=== PATIENT | female | born 1950 | race Caucasian/White ===

== ENCOUNTER 2021-11-30 22:49 | Emergency (ER) | payer MEDICARE ==
[~2021-11-30 22:49] MED LIST: Iopamidol-370 76% 500 ML 1 ML ONE
[2021-11-30 23:18] LABS: #Basophils 0.1 thou/uL (0.0-0.2); #Eosinphils 0.4 thou/uL (0.0-0.7); #Lymphocytes 5.2 thou/uL (1.20-3.40); #Monocytes 1.4 thou/uL (0.11-0.59); #Neutrophils 8.3 thou/uL (1.40-6.50); %Basophils 0.5 % (0.0-1.0); %Eosinophils 2.4 % (0.0-10.0); %Lymphocytes 33.6 % (21.0-51.0); %Monocytes 9.4 % (0.0-10.0); %Neutrophils 54.1 % (42.0-75.0); Hemoglobin 11.8 g/dL (12.0-16.0); Mean Corpuscular Hemoglobin 31.4 pg (27.0-31.0); Mean Corpuscular Volume 92.5 fL (78.0-98.0); Mean Platelet Volume 7.7 fL (7.4-10.4); Platelet Count 262 thou/uL (130-400); RBC Distribution Width 13.1 % (11.5-14.5); Red Blood Cell (RBC) Count 3.76 mill/uL (4.20-5.40); White Blood Cell (WBC) Count 15.3 thou/uL (4.8-10.8)
[2021-11-30 23:23] LABS: Albumin 3.9 g/dL (3.4-4.8); Anion Gap 16 mmol/L (10-20); BUN (Urea Nitrogen) 14 mg/dL (9.8-20.1); Bilirubin, Total 0.4 mg/dL (0.2-1.2); Calc. Creatinine Clearance 0 mL/min (70-130); Calcium 8.7 mg/dL (7.8-10.44); Carbon Dioxide 25 mmol/L (23-31); Chloride 101 mmol/L (98-107); Estimated GFR 60; Glucose 113 mg/dL (80-115); Potassium 3.5 mmol/L (3.5-5.1); Protein, Total 6.4 g/dL (5.8-8.1); Sodium 138 mmol/L (136-145)
[2021-11-30 23:24] LABS: ALT (SGPT) 11 U/L (8-55); AST (SGOT) 15 U/L (5-34); Alkaline Phosphatase 107 U/L (40-110); CK (CPK) 47 U/L (29-168); Globulin 2.5 g/dL (2.4-3.5)
[2021-11-30 23:26] LABS: INR-International Normal Ratio 0.9; Prothrombin Time 12.2 sec (12.0-14.7)
[2021-11-30 23:27] LABS: PTT 27.1 sec (22.9-36.1)
[2021-11-30] MEDS ORDERED: HYDROcodone/Acetaminophen 5/325 mg Tablet ONE (23:44)
[2021-12-01 01:34] LABS: SARS-CoV-2 NAA Rapid Test Not Detected (NotDetected)
== END 2021-12-01 03:20 | disposition short-term general hospital (02) ==
LOC: ERS 22:49
DX: R29.810 Facial weakness (principal); R47.81 Slurred speech; R29.898 Other symptoms and signs involving the musculoskeletal system; Z20.822 Contact with and (suspected) exposure to COVID-19; I11.0 Hypertensive heart disease with heart failure; I50.9 Heart failure, unspecified; I25.10 Atherosclerotic heart disease of native coronary artery without angina pectoris; I48.91 Unspecified atrial fibrillation; J44.9 Chronic obstructive pulmonary disease, unspecified; K21.9 Gastro-esophageal reflux disease without esophagitis; F17.210 Nicotine dependence, cigarettes, uncomplicated; Z79.82 Long term (current) use of aspirin; Z79.899 Other long term (current) drug therapy
CPT/HCPCS: 70450 ×2; 70496; 70498; 80053; 82550; 84484; 85025; 85610; 85730; 93005; U0002; 96374; Q9967

== ENCOUNTER 2022-06-23 03:05 | Inpatient (IN) | payer MEDICARE ==
[2022-06-23] MEDS ORDERED: Propofol 1,000 MG/100 ML VIAL IV ONE (03:13)
[2022-06-23 03:36] LABS: Actual Bicarbonate (HCO3a) 22.8 mEq/L (22-28); Analyzer IN Cardio ER; Base Excess (BEa) -2.7 mEq/L (-2.0 to +3.0); Calcium, Ionized (arterial) 1.07 mmol/L (1.12-1.30); Carboxyhemoglobin (COHb) 0.7 gm% (0.0-3.0); Hemoglobin (Hb) 10.4 g/dL (12.0-16.0); O2 Tension (PaO2), arterial 61.6 mmHg (> 80.0); Potassium - ABG Lab 3.64 mmol/L (3.70-5.30); pH, Arterial 7.35 (7.35-7.45)
[2022-06-23 03:39] LABS: Puncture Site LBA
[2022-06-23] MEDS ORDERED: NOREPINEPHRINE 8 MG/250 ML-D5W 250 ML ONE (03:57)
[2022-06-23] MEDS ORDERED: Cefepime 2 GM VIAL ONE (03:57)
[2022-06-23 04:13] LABS: #Lymphocytes 2.2 thou/uL (1.20-3.40); #Monocytes 0.7 thou/uL (0.11-0.59); #Neutrophils 15.2 thou/uL (1.40-6.50); %Basophils 0.2 % (0.0-1.0); %Eosinophils 0.1 % (0.0-10.0); %Monocytes 3.6 % (0.0-10.0); %Neutrophils 84.1 % (42.0-75.0); Hemoglobin 9.9 g/dL (12.0-16.0); Mean Corpuscular HGB CONC 33.1 g/dL (32.0-36.0); Mean Corpuscular Hemoglobin 29.9 pg (27.0-31.0); Mean Corpuscular Volume 90.3 fl (78.0-98.0); Mean Platelet Volume 8.2 fL (7.4-10.4); Platelet Count 334 10x3/uL (130-400); RBC Distribution Width 14.6 % (11.5-14.5); White Blood Cell (WBC) Count 18.1 10x3/uL (4.8-10.8)
[2022-06-23 04:17] LABS: INR-International Normal Ratio 1.7; PTT 33.9 sec (22.9-36.1); Prothrombin Time 20.3 sec (12.0-14.7)
[2022-06-23 04:26] LABS: ALT (SGPT) 27 U/L (8-55); AST (SGOT) 28 U/L (5-34); Albumin 3.7 g/dL (3.4-4.8); Alkaline Phosphatase 114 U/L (40-110); Anion Gap 17 mmol/L (10-20); BUN (Urea Nitrogen) 20 mg/dL (9.8-20.1); Calc. Creatinine Clearance 0 mL/min (70-130); Calcium 8.1 mg/dL (7.8-10.44); Carbon Dioxide 20 mmol/L (23-31); Chloride 103 mmol/L (98-107); Estimated GFR 67; Glucose 322 mg/dL (80-115); Lipase 6 U/L (8-78); Potassium 4.1 mmol/L (3.5-5.1); Protein, Total 5.7 g/dL (5.8-8.1); Sodium 136 mmol/L (136-145)
[2022-06-23] MEDS ORDERED: Vancomycin 1 GM/200 ML (FROZEN) BAG ONE (04:40)
[2022-06-23] MEDS ORDERED: Bisacodyl 10 MG SUPP PR PRN (04:40)
[2022-06-23] MEDS ORDERED: Insulin Regular 300 UNITS/3 ML VIAL SC PRN (04:40)
[2022-06-23] MEDS ORDERED: Ondansetron PF 4 MG/2 ML Vial IVP PRN (04:40)
[2022-06-23] MEDS ORDERED: Acetaminophen 325 MG Suppository PR PRN (04:40)
[2022-06-23] MEDS ORDERED: NOREPINEPHRINE 8 MG/250 ML-D5W 250 ML IVPB PRN (04:40)
[2022-06-23] MEDS ORDERED: Electrolyte Replacement Protocol 1 EACH IVPB PRN (04:40)
[2022-06-23] MEDS ORDERED: Ventilator Sedation Protocol 1 EACH FS SCH (04:45)
[2022-06-23] MEDS ORDERED: Propofol BOLUS 1,000 MG/100 ML VIAL IV PRN (05:00)
[2022-06-23] MEDS ORDERED: Fentanyl BOLUS 250 ML IVPB PRN (05:00)
[2022-06-23] MEDS ORDERED: Morphine 2 MG/ML VIAL SLOW IVP PRN (05:00)
[2022-06-23] MEDS ORDERED: Lorazepam 2 MG/ML VIAL SLOW IVP PRN (05:00)
[2022-06-23] MEDS ORDERED: methylPREDNISolone Sod Succ 40 MG VIAL IVP SCH (05:00)
[2022-06-23] MEDS ORDERED: DISCONTINUE PREVIOUS NARCOTIC PAIN MEDICATIONS AND BENZODIAZEPINES FS SCH (05:00)
[2022-06-23] MEDS ORDERED: Dextrose 50% Abboject 50 ML SYRINGE SLOW IVP PRN (05:08)
[2022-06-23] MEDS ORDERED: Dextrose 5% in Water 1,000 ML IV PRN (05:08)
[2022-06-23] MEDS ORDERED: HumaLOG 300 UNITS/3 ML VIAL SC PRN (05:08)
[2022-06-23] MEDS ORDERED: Ipratropium/Albuterol 3 ML NEB EZPAP PRN (05:11)
[2022-06-23] MEDS ORDERED: Guaifenesin DM 100-10/5 ML UDCUP PER TUBE PRN (05:12)
[2022-06-23] MEDS ORDERED: Ventilator Sedation Protocol 1 EACH FS ONE (05:16)
[2022-06-23 05:52] LABS: Bacteria/HPF None Seen HPF (None Seen); Bilirubin Negative (Negative); Blood, Urine Negative (Negative); Clarity Clear (Clear); Glucose, Urine (Dipstick) Normal (Negative); Ketone, Urine Negative (Negative); Leukocyte Negative Leu/uL (Negative); Nitrite Negative (Negative); Protein, Urine (Dipstick) 30 mg/dL (Neg-Trace); RBC/HPF 0-3 HPF (0-3); Specific Gravity, Urine 1.024 (1.002-1.036); Squamous Epithelial 0-3 HPF (0-3); Urobilinogen Normal mg/dL (Less than 2); WBC/HPF 0-3 HPF (0-3); pH, Urine 5.5 (5.0-9.0)
[2022-06-23 06:24] LABS: SARS-CoV-2 NAA Rapid Test Not Detected (NotDetected)
[2022-06-23] MEDS ORDERED: Fentanyl CADD 100 ML ONE (06:28)
[2022-06-23] MEDS ORDERED: Furosemide 40 MG/4 ML VIAL SLOW IVP SCH (06:30)
[2022-06-23] MEDS ORDERED: Sodium Chloride 0.9% 1,000 ML IV SCH ×2 (06:30→06:38)
[2022-06-23] MEDS: HumaLOG 300 UNITS/3 ML VIAL SC PRN ×3 (06:31→18:06)
[2022-06-23] MEDS: Fentanyl CADD 100 ML IV SCH (06:32)
[2022-06-23] MEDS ORDERED: Ipratropium/Albuterol 3 ML NEB NEB SCH (07:00)
[2022-06-23] MEDS: Ipratropium/Albuterol 3 ML NEB NEB SCH ×5 (07:22→23:48)
[2022-06-23 07:40] LABS: Hemoglobin A1c 6.3 % (4.0-6.0)
[2022-06-23 07:45] LABS: Magnesium 2.7 mg/dL (1.6-2.6)
[2022-06-23 07:59] LABS: Troponin I 0.017 ng/mL (< 0.028)
[2022-06-23 08:04] LABS: Lactic Acid 2.5 mmol/L (0.5-2.2)
[2022-06-23] MEDS: methylPREDNISolone Sod Succ 40 MG VIAL IVP SCH ×2 (08:58→20:20)
[2022-06-23] MEDS: Famotidine/PF 20 mg/2ml Vial SLOW IVP SCH ×2 (08:58→20:20)
[2022-06-23 10:10] LABS: Legionella Urinary Ag Negative (Negative); Strep pneumo Urine Ag NEGATIVE (NEGATIVE)
[2022-06-23] MEDS ORDERED: FLU VACC QS2022-23(65YR UP)/PF 240 MCG/0.7 ML SYRINGE IM ONE (10:15)
[2022-06-23] MEDS: Propofol 1,000 MG/100 ML VIAL IV PRN ×2 (10:27→18:05)
[2022-06-23] MEDS ORDERED: Cefepime 2 GM in Sodium Chloride 0.9% 100 ML IVPB SCH (16:00)
[2022-06-23] MEDS: Acetaminophen 650 MG/20.3 ML UDCUP PO PRN (16:01)
[2022-06-24] MEDS: Propofol 1,000 MG/100 ML VIAL IV PRN ×4 (02:22→20:31)
[2022-06-24] MEDS: Fentanyl CADD 100 ML IV SCH (02:39)
[2022-06-24] MEDS: Ipratropium/Albuterol 3 ML NEB NEB SCH ×6 (02:44→21:35)
[2022-06-24] MEDS: Cefepime 1 GM in Sodium Chloride 0.9% 100 ML IVPB SCH ×2 (03:22→16:19)
[2022-06-24 05:05] LABS: #Lymphocytes 0.9 thou/uL (1.20-3.40); #Monocytes 0.4 thou/uL (0.11-0.59); %Eosinophils 0.1 % (0.0-10.0); %Lymphocytes 6.4 % (21.0-51.0); %Neutrophils 90.5 % (42.0-75.0); Hemoglobin 8.4 g/dL (12.0-16.0); Mean Corpuscular Hemoglobin 29.7 pg (27.0-31.0); Mean Platelet Volume 8.6 fL (7.4-10.4); Platelet Count 315 10x3/uL (130-400); RBC Distribution Width 14.4 % (11.5-14.5); Red Blood Cell (RBC) Count 2.84 mill/uL (4.20-5.40); White Blood Cell (WBC) Count 13.3 10x3/uL (4.8-10.8)
[2022-06-24 05:28] LABS: Anion Gap 14 mmol/L (10-20); BUN (Urea Nitrogen) 18 mg/dL (9.8-20.1); Calc. Creatinine Clearance 81 mL/min (70-130); Carbon Dioxide 22 mmol/L (23-31); Chloride 106 mmol/L (98-107); Potassium 3.6 mmol/L (3.5-5.1); Sodium 138 mmol/L (136-145)
[2022-06-24 05:29] LABS: Calcium 8.4 mg/dL (7.8-10.44); Estimated GFR 81; Glucose 233 mg/dL (80-115); Magnesium 2.3 mg/dL (1.6-2.6)
[2022-06-24 06:27] LABS: Actual Bicarbonate (HCO3a) 22.4 mEq/L (22-28); CO2 Tension 36.9 mmHg (35.0-45.0); Calcium, Ionized (arterial) 1.14 mmol/L (1.12-1.30); Carboxyhemoglobin (COHb) 0.1 gm% (0.0-3.0); Hemoglobin (Hb) 9.9 g/dL (12.0-16.0); Potassium - ABG Lab 3.87 mmol/L (3.70-5.30)
[2022-06-24 06:29] LABS: ALV-art Gradient 182.975 mmHg (0-20)
[2022-06-24] MEDS ORDERED: Dexmedetomidine In 0.9 % NaCl 100 ML IVPB SCH (08:15)
[2022-06-24] MEDS ORDERED: Propofol 1,000 MG/100 ML VIAL IV ONE (08:16)
[2022-06-24] MEDS: Famotidine/PF 20 mg/2ml Vial SLOW IVP SCH ×2 (08:50→20:32)
[2022-06-24] MEDS: Polyethylene Glycol 3350 17 GM Packet PO SCH (08:50)
[2022-06-24] MEDS: methylPREDNISolone Sod Succ 40 MG VIAL IVP SCH ×2 (08:50→20:31)
[2022-06-24] MEDS ORDERED: Vancomycin 1.5 GRAM/300 ML BAG 1.5 GM in Premix Bag 1 BAG IVPB SCH (09:00)
[2022-06-24] MEDS ORDERED: Propofol BOLUS 1,000 MG/100 ML VIAL IV PRN (09:00)
[2022-06-24] MEDS: HumaLOG 300 UNITS/3 ML VIAL SC PRN ×3 (11:57→22:07)
[2022-06-24] MEDS: Vancomycin HCl 750 MG in Sodium Chloride 0.9% 250 ML 250 ML IVPB SCH (22:00)
[2022-06-25] MEDS: Ipratropium/Albuterol 3 ML NEB NEB SCH ×6 (01:54→21:48)
[2022-06-25] MEDS: Cefepime 1 GM in Sodium Chloride 0.9% 100 ML IVPB SCH ×2 (04:05→15:46)
[2022-06-25] MEDS: Propofol 1,000 MG/100 ML VIAL IV PRN ×2 (04:05→15:05)
[2022-06-25] MEDS: HumaLOG 300 UNITS/3 ML VIAL SC PRN ×3 (04:22→17:46)
[2022-06-25 04:53] LABS: #Lymphocytes 0.8 thou/uL (1.20-3.40); #Monocytes 0.4 thou/uL (0.11-0.59); #Neutrophils 10.9 thou/uL (1.40-6.50); %Basophils 0.2 % (0.0-1.0); %Eosinophils 0.1 % (0.0-10.0); %Lymphocytes 6.6 % (21.0-51.0); %Monocytes 3.2 % (0.0-10.0); %Neutrophils 89.9 % (42.0-75.0); Hemoglobin 8.2 g/dL (12.0-16.0); Mean Corpuscular HGB CONC 32.5 g/dL (32.0-36.0); Mean Corpuscular Hemoglobin 29.1 pg (27.0-31.0); Mean Corpuscular Volume 89.5 fl (78.0-98.0); Platelet Count 329 10x3/uL (130-400); RBC Distribution Width 14.3 % (11.5-14.5); White Blood Cell (WBC) Count 12.1 10x3/uL (4.8-10.8)
[2022-06-25 05:12] LABS: Anion Gap 11 mmol/L (10-20); BUN (Urea Nitrogen) 21 mg/dL (9.8-20.1); Calc. Creatinine Clearance 81 mL/min (70-130); Calcium 8.5 mg/dL (7.8-10.44); Carbon Dioxide 24 mmol/L (23-31); Chloride 108 mmol/L (98-107); Estimated GFR 83; Glucose 218 mg/dL (80-115); Potassium 3.6 mmol/L (3.5-5.1); Sodium 139 mmol/L (136-145)
[2022-06-25 07:09] LABS: Actual Bicarbonate (HCO3a) 23.5 mEq/L (22-28); Base Excess (BEa) -0.8 mEq/L (-2.0 to +3.0); Calcium, Ionized (arterial) 1.17 mmol/L (1.12-1.30); Carboxyhemoglobin (COHb) 0.3 gm% (0.0-3.0); Hemoglobin (Hb) 9.8 g/dL (12.0-16.0); O2 Tension (PaO2), arterial 118.7 mmHg (> 80.0); Potassium - ABG Lab 3.76 mmol/L (3.70-5.30); pH, Arterial 7.42 (7.35-7.45)
[2022-06-25] MEDS ORDERED: NPH, Human Insulin Isophane 300 UNIT/3 ML VIAL SC SCH (09:00)
[2022-06-25] MEDS: Rivaroxaban 10 MG TAB PER TUBE SCH (09:54)
[2022-06-25] MEDS: Famotidine 20 MG TAB PO SCH ×2 (09:54→20:06)
[2022-06-25] MEDS: Polyethylene Glycol 3350 17 GM Packet PO SCH (09:55)
[2022-06-25] MEDS: Vancomycin HCl 750 MG in Sodium Chloride 0.9% 250 ML 250 ML IVPB SCH ×2 (09:55→20:06)
[2022-06-25] MEDS: methylPREDNISolone Sod Succ 40 MG VIAL IVP SCH ×2 (09:57→20:06)
[2022-06-25] MEDS ORDERED: Insulin NPH Human Isophane 100 UNIT/ML (10 ML VIAL) SC SCH (10:45)
[2022-06-25] MEDS ORDERED: Lactated Ringer's 1,000 ML IV SCH (12:45)
[2022-06-25] MEDS: Metoclopramide HCl 10 MG/2 ML VIAL IVP SCH ×2 (13:09→20:06)
[2022-06-25 15:35] LABS: O2 Tension (PaO2), arterial 56.1 mmHg (> 80.0)
[2022-06-25] MEDS: Insulin NPH Human Isophane 100 UNIT/ML (10 ML VIAL) SC SCH (20:07)
[2022-06-25 21:09] LABS: Vancomycin, Trough 20.6 ug/mL
[2022-06-26] MEDS: Ipratropium/Albuterol 3 ML NEB NEB SCH ×6 (07:16→21:43)
[2022-06-26 07:17] LABS: Base Excess (BEa) -1.1 mEq/L (-2.0 to +3.0); CO2 Tension 35.8 mmHg (35.0-45.0); Calcium, Ionized (arterial) 1.15 mmol/L (1.12-1.30); Hemoglobin (Hb) 8.9 g/dL (12.0-16.0); O2 Tension (PaO2), arterial 111.5 mmHg (> 80.0); Puncture Site RBA; pH, Arterial 7.43 (7.35-7.45)
[2022-06-26] MEDS: Cefepime 1 GM in Sodium Chloride 0.9% 100 ML IVPB SCH ×2 (07:35→16:35)
[2022-06-26 07:49] LABS: Hemoglobin 9.1 g/dL (12.0-16.0); Mean Corpuscular HGB CONC 31.9 g/dL (32.0-36.0); Mean Corpuscular Hemoglobin 28.5 pg (27.0-31.0); Mean Corpuscular Volume 89.2 fl (78.0-98.0); Mean Platelet Volume 7.6 fL (7.4-10.4); Platelet Count 362 10x3/uL (130-400); RBC Distribution Width 14.5 % (11.5-14.5); Red Blood Cell (RBC) Count 3.18 mill/uL (4.20-5.40); White Blood Cell (WBC) Count 14.5 10x3/uL (4.8-10.8)
[2022-06-26 07:53] LABS: Anion Gap 15 mmol/L (10-20); BUN (Urea Nitrogen) 29 mg/dL (9.8-20.1); Calc. Creatinine Clearance 81 mL/min (70-130); Calcium 8.4 mg/dL (7.8-10.44); Carbon Dioxide 20 mmol/L (23-31); Chloride 110 mmol/L (98-107); Estimated GFR 81; Glucose 138 mg/dL (80-115); Potassium 4.5 mmol/L (3.5-5.1); Sodium 140 mmol/L (136-145)
[2022-06-26 08:47] LABS: #Lymphocytes 1.6 thou/uL (1.20-3.40); #Monocytes 1.1 thou/uL (0.11-0.59); #Neutrophils 11.8 thou/uL (1.40-6.50); %Basophils 0.1 % (0.0-1.0); %Eosinophils 0.2 % (0.0-10.0); %Lymphocytes 11.2 % (21.0-51.0); %Monocytes 7.6 % (0.0-10.0); %Neutrophils 80.9 % (42.0-75.0); Band 6 % (5-11); Lymphocytes 14 % (21-51); MDiff Complete? YES; Monocytes 3 % (0-10); Neutrophil 77 % (42-75); Platelet Morphology Comment Appears Adequate; Polychromasia SLIGHT = 2-3 cells (100X) (0-2/hpf)
[2022-06-26] MEDS ORDERED: Vancomycin 1.5 GRAM/300 ML BAG 1.5 GM in Premix Bag 1 BAG IVPB SCH (09:00)
[2022-06-26] MEDS: Metoclopramide HCl 10 MG/2 ML VIAL IVP SCH ×2 (10:36→20:56)
[2022-06-26] MEDS: methylPREDNISolone Sod Succ 40 MG VIAL IVP SCH ×2 (10:36→20:57)
[2022-06-26] MEDS: Famotidine 20 MG TAB PO SCH ×2 (10:37→20:56)
[2022-06-26] MEDS: Rivaroxaban 10 MG TAB PER TUBE SCH (10:38)
[2022-06-26] MEDS: Insulin NPH Human Isophane 100 UNIT/ML (10 ML VIAL) SC SCH ×2 (10:39→20:58)
[2022-06-26] MEDS: Polyethylene Glycol 3350 17 GM Packet PO SCH (10:42)
[2022-06-26] MEDS: Propofol 1,000 MG/100 ML VIAL IV PRN (12:21)
[2022-06-26] MEDS: HumaLOG 300 UNITS/3 ML VIAL SC PRN (16:35)
[2022-06-26] MEDS: Acetaminophen 650 MG/20.3 ML UDCUP PO PRN (20:56)
[2022-06-26 22:36] LABS: Mycoplasma pneumoniae IgG AB Less than 100 U/mL (0-99); Mycoplasma pneumoniae IgM AB Less than 770 U/mL (0-769)
[2022-06-27] MEDS: Ipratropium/Albuterol 3 ML NEB NEB SCH ×6 (02:16→21:26)
[2022-06-27] MEDS: Propofol 1,000 MG/100 ML VIAL IV PRN (02:25)
[2022-06-27] MEDS: Cefepime 1 GM in Sodium Chloride 0.9% 100 ML IVPB SCH ×2 (03:08→16:57)
[2022-06-27 04:25] LABS: Band 3 % (5-11); Hemoglobin 9.9 g/dL (12.0-16.0); Hypochromia SLIGHT = 6-15 cells (100X) (0-5/hpf); Lymphocytes 16 % (21-51); MDiff Complete? YES; Mean Corpuscular HGB CONC 31.6 g/dL (32.0-36.0); Mean Corpuscular Hemoglobin 29.7 pg (27.0-31.0); Mean Corpuscular Volume 93.8 fl (78.0-98.0); Mean Platelet Volume 7.7 fL (7.4-10.4); Monocytes 1 % (0-10); Neutrophil 80 % (42-75); Platelet Count 299 10x3/uL (130-400); Platelet Morphology Comment Appears Adequate; RBC Distribution Width 14.7 % (11.5-14.5); Red Blood Cell (RBC) Count 3.33 mill/uL (4.20-5.40); White Blood Cell (WBC) Count 12.6 10x3/uL (4.8-10.8)
[2022-06-27 07:33] LABS: Actual Bicarbonate (HCO3a) 23.1 mEq/L (22-28); Base Excess (BEa) -0.6 mEq/L (-2.0 to +3.0); CO2 Tension 34.1 mmHg (35.0-45.0); Calcium, Ionized (arterial) 1.16 mmol/L (1.12-1.30); Carboxyhemoglobin (COHb) 0.3 gm% (0.0-3.0); Hemoglobin (Hb) 8.4 g/dL (12.0-16.0); pH, Arterial 7.45 (7.35-7.45)
[2022-06-27 07:38] LABS: ALV-art Gradient 124.575 mmHg (0-20); Puncture Site RBA
[2022-06-27] MEDS ORDERED: Furosemide 40 MG/4 ML VIAL SLOW IVP SCH (07:45)
[2022-06-27] MEDS: Metoclopramide HCl 10 MG/2 ML VIAL IVP SCH ×2 (10:12→20:48)
[2022-06-27] MEDS: Famotidine 20 MG TAB PO SCH ×2 (10:12→20:48)
[2022-06-27] MEDS: methylPREDNISolone Sod Succ 40 MG VIAL IVP SCH ×2 (10:12→20:48)
[2022-06-27] MEDS: Polyethylene Glycol 3350 17 GM Packet PO SCH (10:12)
[2022-06-27] MEDS: Insulin NPH Human Isophane 100 UNIT/ML (10 ML VIAL) SC SCH ×2 (10:13→20:49)
[2022-06-27] MEDS: Rivaroxaban 10 MG TAB PER TUBE SCH (10:34)
[2022-06-27] MEDS ORDERED: DC Sedation Protocol FS ONE (10:38)
[2022-06-27] MEDS ORDERED: Lorazepam 2 MG/ML VIAL SLOW IVP PRN (12:19)
[2022-06-27] MEDS ORDERED: Lorazepam 2 MG/ML VIAL ONE (12:22)
[2022-06-27] MEDS ORDERED: Diltiazem 125 MG in Sodium Chloride 0.9% 100 ML IVPB SCH (12:30)
[2022-06-27] MEDS ORDERED: PROPOFOL 200 MG/20 ML VIAL ONE (12:30)
[2022-06-27] MEDS ORDERED: Propofol 1,000 MG/100 ML VIAL IV ONE (12:53)
[2022-06-27] MEDS ORDERED: Ventilator Sedation Protocol 1 EACH FS PRN (13:00)
[2022-06-27] MEDS ORDERED: DISCONTINUE PREVIOUS NARCOTIC PAIN MEDICATIONS AND BENZODIAZEPINES FS SCH (13:45)
[2022-06-27] MEDS ORDERED: Fentanyl CADD 100 ML IV SCH (13:45)
[2022-06-27] MEDS ORDERED: Fentanyl BOLUS 250 ML IVPB PRN (13:45)
[2022-06-27] MEDS ORDERED: Propofol BOLUS 1,000 MG/100 ML VIAL IV PRN (13:45)
[2022-06-27] MEDS ORDERED: Morphine 4 MG/ML VIAL SLOW IVP PRN (13:45)
[2022-06-27] MEDS ORDERED: Propofol 1,000 MG/100 ML VIAL IV PRN (13:45)
[2022-06-27 16:43] VITALS: BMI 31.4
[2022-06-27 22:01] LABS: Anion Gap 12 mmol/L (10-20); BUN (Urea Nitrogen) 24 mg/dL (9.8-20.1); Calc. Creatinine Clearance 84 mL/min (70-130); Calcium 8.4 mg/dL (7.8-10.44); Carbon Dioxide 23 mmol/L (23-31); Chloride 109 mmol/L (98-107); Estimated GFR 82; Glucose 150 mg/dL (80-115); Potassium 4.7 mmol/L (3.5-5.1); Sodium 139 mmol/L (136-145)
[2022-06-28] MEDS: Ipratropium/Albuterol 3 ML NEB NEB SCH ×6 (01:39→22:24)
[2022-06-28 04:01] LABS: #Eosinphils 0.1 thou/uL (0.0-0.7); #Monocytes 0.5 thou/uL (0.11-0.59); #Neutrophils 11.3 thou/uL (1.40-6.50); %Eosinophils 0.5 % (0.0-10.0); %Lymphocytes 7.9 % (21.0-51.0); %Monocytes 3.9 % (0.0-10.0); %Neutrophils 87.7 % (42.0-75.0); Mean Corpuscular HGB CONC 32.1 g/dL (32.0-36.0); Mean Corpuscular Hemoglobin 29.1 pg (27.0-31.0); Mean Corpuscular Volume 90.6 fl (78.0-98.0); Mean Platelet Volume 7.5 fL (7.4-10.4); Platelet Count 306 10x3/uL (130-400); RBC Distribution Width 14.6 % (11.5-14.5); Red Blood Cell (RBC) Count 2.75 mill/uL (4.20-5.40); White Blood Cell (WBC) Count 12.9 10x3/uL (4.8-10.8)
[2022-06-28] MEDS: Cefepime 1 GM in Sodium Chloride 0.9% 100 ML IVPB SCH ×2 (04:10→15:15)
[2022-06-28 04:37] LABS: Anion Gap 14 mmol/L (10-20); BUN (Urea Nitrogen) 25 mg/dL (9.8-20.1); Calc. Creatinine Clearance 85 mL/min (70-130); Calcium 8.4 mg/dL (7.8-10.44); Carbon Dioxide 23 mmol/L (23-31); Chloride 108 mmol/L (98-107); Estimated GFR 83; Glucose 175 mg/dL (80-115); Potassium 4.6 mmol/L (3.5-5.1); Sodium 140 mmol/L (136-145)
[2022-06-28] MEDS: HumaLOG 300 UNITS/3 ML VIAL SC PRN ×2 (04:58→16:42)
[2022-06-28] MEDS: Acetaminophen 650 MG/20.3 ML UDCUP PO PRN (05:56)
[2022-06-28] MEDS ORDERED: Furosemide 40 MG/4 ML VIAL SLOW IVP SCH ×2 (06:00→07:45)
[2022-06-28] MEDS ORDERED: NOREPINEPHRINE 8 MG/250 ML-D5W 250 ML IVPB SCH (07:45)
[2022-06-28 07:48] LABS: Actual Bicarbonate (HCO3a) 23.4 mEq/L (22-28); CO2 Tension 32.7 mmHg (35.0-45.0); Calcium, Ionized (arterial) 1.13 mmol/L (1.12-1.30); Carboxyhemoglobin (COHb) 0.2 gm% (0.0-3.0); Hemoglobin (Hb) 8.2 g/dL (12.0-16.0); O2 Tension (PaO2), arterial 145.8 mmHg (> 80.0); Potassium - ABG Lab 4.33 mmol/L (3.70-5.30); pH, Arterial 7.47 (7.35-7.45)
[2022-06-28 07:50] LABS: ALV-art Gradient 169.825 mmHg (0-20); Puncture Site RRA
[2022-06-28] MEDS: Lorazepam 2 MG/ML VIAL SLOW IVP PRN (08:07)
[2022-06-28] MEDS: Metoclopramide HCl 10 MG/2 ML VIAL IVP SCH ×2 (08:07→20:17)
[2022-06-28] MEDS: Famotidine 20 MG TAB PO SCH ×2 (08:07→20:17)
[2022-06-28] MEDS: methylPREDNISolone Sod Succ 40 MG VIAL IVP SCH ×2 (08:07→20:18)
[2022-06-28] MEDS: Polyethylene Glycol 3350 17 GM Packet PO SCH (08:07)
[2022-06-28] MEDS: Insulin NPH Human Isophane 100 UNIT/ML (10 ML VIAL) SC SCH ×2 (08:08→20:18)
[2022-06-28] MEDS: Rivaroxaban 10 MG TAB PER TUBE SCH (08:08)
[2022-06-28] MEDS ORDERED: Midazolam HCl 100 MG in Admixture Fee 1 EACH IVPB SCH (10:45)
[2022-06-28 17:43] LABS: SARS-CoV-2 NAA Rapid Test Not Detected (NotDetected)
[2022-06-29] MEDS: Ipratropium/Albuterol 3 ML NEB NEB SCH ×3 (01:47→10:38)
[2022-06-29] MEDS: Cefepime 1 GM in Sodium Chloride 0.9% 100 ML IVPB SCH (04:20)
[2022-06-29] MEDS: Acetaminophen 650 MG/20.3 ML UDCUP PO PRN (04:30)
[2022-06-29] MEDS: HumaLOG 300 UNITS/3 ML VIAL SC PRN (04:31)
[2022-06-29 04:40] LABS: Hemoglobin 7.3 g/dL (12.0-16.0); Mean Corpuscular HGB CONC 33.2 g/dL (32.0-36.0); Mean Corpuscular Hemoglobin 29.6 pg (27.0-31.0); Mean Corpuscular Volume 89.1 fl (78.0-98.0); Mean Platelet Volume 7.4 fL (7.4-10.4); Platelet Count 268 10x3/uL (130-400); RBC Distribution Width 14.7 % (11.5-14.5); Red Blood Cell (RBC) Count 2.48 mill/uL (4.20-5.40); White Blood Cell (WBC) Count 13.1 10x3/uL (4.8-10.8)
[2022-06-29 04:58] LABS: Anion Gap 13 mmol/L (10-20); BUN (Urea Nitrogen) 25 mg/dL (9.8-20.1); Calc. Creatinine Clearance 88 mL/min (70-130); Calcium 8.3 mg/dL (7.8-10.44); Carbon Dioxide 25 mmol/L (23-31); Chloride 107 mmol/L (98-107); Estimated GFR 94; Glucose 173 mg/dL (80-115); Potassium 4.6 mmol/L (3.5-5.1); Sodium 140 mmol/L (136-145)
[2022-06-29 05:10] LABS: Band 1 % (5-11); Lymphocytes 5 % (21-51); MDiff Complete? YES; Monocytes 5 % (0-10); Neutrophil 89 % (42-75); Polychromasia SLIGHT = 2-3 cells (100X) (0-2/hpf)
[2022-06-29 07:34] LABS: Actual Bicarbonate (HCO3a) 27.7 mEq/L (22-28); Base Excess (BEa) 3.7 mEq/L (-2.0 to +3.0); Calcium, Ionized (arterial) 1.11 mmol/L (1.12-1.30); Hemoglobin (Hb) 7.5 g/dL (12.0-16.0); Potassium - ABG Lab 4.55 mmol/L (3.70-5.30); pH, Arterial 7.47 (7.35-7.45)
[2022-06-29 07:50] LABS: Puncture Site LBA
[2022-06-29] MEDS: Famotidine 20 MG TAB PO SCH (08:18)
[2022-06-29] MEDS: Polyethylene Glycol 3350 17 GM Packet PO SCH (08:18)
[2022-06-29] MEDS: Metoclopramide HCl 10 MG/2 ML VIAL IVP SCH (08:18)
[2022-06-29] MEDS: Insulin NPH Human Isophane 100 UNIT/ML (10 ML VIAL) SC SCH (08:19)
[2022-06-29] MEDS: methylPREDNISolone Sod Succ 40 MG VIAL IVP SCH (08:20)
[2022-06-29] MEDS: Rivaroxaban 10 MG TAB PER TUBE SCH (08:51)
[2022-06-29] MEDS ORDERED: Vancomycin 1 GM in Premix Bag 1 BAG IVPB SCH (09:00)
[2022-06-29] MEDS ORDERED: Magnesium 2 GM/50 ML(in water) 2 GM in Premix Bag 1 BAG IVPB SCH (09:00)
[2022-06-29] MEDS ORDERED: Meropenem 1 GM in Sodium Chloride 0.9% 100 ML IVPB SCH ×3 (10:00→19:00)
[2022-06-29] MEDS ORDERED: VANCOMYCIN 1.25 GM/250 ML BAG 1.25 GM in Premix Bag 1 BAG IVPB SCH (10:00)
[2022-06-29 10:22] LABS: Hemoglobin 7.6 g/dL (12.0-16.0)
[2022-06-29 10:40] VITALS: BP 105/74
[2022-06-29] MEDS: Lorazepam 2 MG/ML VIAL SLOW IVP PRN (11:53)
[2022-06-29 12:21] VITALS: TEMP 99
== END 2022-06-29 13:30 | disposition short-term general hospital (02) | DRG 870 ==
LOC: ERS 03:05 → CCU 05:08
PROVIDERS: ADMIT Internal Medicine; ATTEND Internal Medicine
PROC: 3E03329 Introduction of Other Anti-infective into Peripheral Vein, Percutaneous Approach (ICD-10-PCS; principal; 2022-06-23)
PROC: 5A1955Z Respiratory Ventilation, Greater than 96 Consecutive Hours (ICD-10-PCS; 2022-06-23)
PROC: 4A133R1 Monitoring of Arterial Saturation, Peripheral, Percutaneous Approach (ICD-10-PCS; 2022-06-23)
PROC: 3E04329 Introduction of Other Anti-infective into Central Vein, Percutaneous Approach (ICD-10-PCS; 2022-06-23)
PROC: 0D9670Z Drainage of Stomach with Drainage Device, Via Natural or Artificial Opening (ICD-10-PCS; 2022-06-23)
PROC: 3E0G76Z Introduction of Nutritional Substance into Upper GI, Via Natural or Artificial Opening (ICD-10-PCS; 2022-06-23)
PROC: 02H633Z Insertion of Infusion Device into Right Atrium, Percutaneous Approach (ICD-10-PCS; 2022-06-23)
PROC: B548ZZA Ultrasonography of Superior Vena Cava, Guidance (ICD-10-PCS; 2022-06-23)
PROC: 0BH18EZ Insertion of Endotracheal Airway into Trachea, Via Natural or Artificial Opening Endoscopic (ICD-10-PCS; 2022-06-27)
PROC: 5A1935Z Respiratory Ventilation, Less than 24 Consecutive Hours (ICD-10-PCS; 2022-06-27)
PROC: 5A1945Z Respiratory Ventilation, 24-96 Consecutive Hours (ICD-10-PCS; 2022-06-27)
PROC: 3E033XZ Introduction of Vasopressor into Peripheral Vein, Percutaneous Approach (ICD-10-PCS; 2022-06-28)
DX: A41.9 Sepsis, unspecified organism (principal); J96.21 Acute and chronic respiratory failure with hypoxia; J18.9 Pneumonia, unspecified organism; J96.22 Acute and chronic respiratory failure with hypercapnia; I50.43 Acute on chronic combined systolic (congestive) and diastolic (congestive) heart failure; J44.1 Chronic obstructive pulmonary disease with (acute) exacerbation; J44.0 Chronic obstructive pulmonary disease with (acute) lower respiratory infection; I69.354 Hemiplegia and hemiparesis following cerebral infarction affecting left non-dominant side; I48.20 Chronic atrial fibrillation, unspecified; Z20.822 Contact with and (suspected) exposure to COVID-19; I25.10 Atherosclerotic heart disease of native coronary artery without angina pectoris; E11.51 Type 2 diabetes mellitus with diabetic peripheral angiopathy without gangrene; E78.5 Hyperlipidemia, unspecified; E03.9 Hypothyroidism, unspecified; F41.9 Anxiety disorder, unspecified; F32.A Depression, unspecified; F17.210 Nicotine dependence, cigarettes, uncomplicated; I08.1 Rheumatic disorders of both mitral and tricuspid valves; I11.0 Hypertensive heart disease with heart failure; D64.9 Anemia, unspecified; Z88.0 Allergy status to penicillin; Z95.1 Presence of aortocoronary bypass graft; Z95.5 Presence of coronary angioplasty implant and graft; Z95.810 Presence of automatic (implantable) cardiac defibrillator; Z78.1 Physical restraint status; Z79.899 Other long term (current) drug therapy
CPT/HCPCS: 31500; 36415; 36416; 36430; 36556; 36600; 51702; 71045; 72020; 80048; 80053; 80202; 81003; 81015; 82805; 83036; 83605; 83690; 83735; 83880; 84145; 84443; 84484; 85025; 85610; 85730; 86140; 86850; 86900; 86901; 87040; 87077; 87086; 87149; 87186; 87449; 87811; 87899; 93005; 93010; 93306; 94002; 94003; 94640; 94660; 96365; 96366; 96368; J0692; J1650; J1815; J1940; J2060; J2185; J2250; J2270; J2272; J2704; J2765; J2920; J3010; J3370; J3370-JW; J3475; J3490; J7050; J7120; J7620; P9016; S0028; U0002